=== PATIENT | female | born 1990 | race American Indian/Alaskan Native ===

== ENCOUNTER 2017-12-06 20:05 | Emergency (ER) | payer SELFPAY | END 2017-12-06 20:30 | disposition left against medical advice (07) | LOC: ED 20:05 | DX: R06.00 Dyspnea, unspecified (principal); Z53.21 Procedure and treatment not carried out due to patient leaving prior to being seen by health care provider ==

== ENCOUNTER 2018-10-15 16:56 | Emergency (ER) | payer SELFPAY ==
[2018-10-15 17:12] VITALS: BP 97/56
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
[2018-10-15] MEDS ORDERED: NORCO 5/325 PO ONE (17:32)
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
--- NOTE | 2018-10-15 19:22 | XRay Report ---
CLINICAL DATA: neck pain TECHNICAL DATA: AP, lateral, and odontoid views of the cervical spine were obtained. FINDINGS: The vertebral body heights, disc spaces, and alignment are well within normal limits. There is no glenna dence of fracture. No prevertebral soft tissue swelling is evident. IMPRESSION: Normal alignment without evidence of fracture. Signer Name: Atif Rebollar MD Signed: 10/15/2018 7:17 PM Workstation Name: [id number]
--- NOTE | 2018-10-15 19:22 | XRay Report ---
CHEST 2 VIEWS INDICATION: chest pain. COMPARISON: NONE FINDINGS: Support devices: None. Heart: Within normal limits. Lungs: No acute air space or interstitial disease. Pleura: No significant pleural effusion. No pneumothorax. Additional findings: None. IMPRESSION: 1. No acute findings. Signer Name: Atif Rebollar MD Signed: 10/15/2018 7:18 PM Workstation Name: [id number]
== END 2018-10-15 19:35 | disposition home or self-care (01) ==
LOC: ED 16:56
DX: S16.1XXA Strain of muscle, fascia and tendon at neck level, initial encounter (principal); R07.89 Other chest pain; M79.605 Pain in left leg; M79.604 Pain in right leg; Z79.899 Other long term (current) drug therapy; V89.2XXA Person injured in unspecified motor-vehicle accident, traffic, initial encounter; Y93.89 Activity, other specified; Y92.488 Other paved roadways as the place of occurrence of the external cause; Y99.8 Other external cause status
CPT/HCPCS: 71046; 72040; 93005; 93010; 99283

== ENCOUNTER 2019-01-05 12:08 | Emergency (ER) | payer OTHER ==
[2019-01-05 12:13] VITALS: BP 105/57
--- NOTE | 2019-01-05 12:29 | Emergency Department Report ---
Chief Complaint: Abdominal Pain Stated Complaint: POSS Time Seen by Provider: 01/05/19 12:19 - HPI History of Present Illness: This is a 28-year-old female nontoxic, well in appearance with no signs of distress presents to the ED for testing. Patient stated she has a positive test at home and just wants a test. Patient stated she is asymptotic. Denies any abdominal or pelvic pain. Denies any vaginal discharge, vaginal pain, or swelling. Patient denies any urinary symptoms. Patient denies any fever, chills, headache, nausea, vomiting, chest pain or shortness of breathe. denies any other symptoms or complaints. Denies any allergies or PMH. - Exam Vital Signs: Vital Signs 01/05/19 12:11 Temperature 98.3 F Pulse Rate 68 Respiratory 16 Rate Blood Pressure 105/57 O2 Sat by Pulse 96 Oximetry Physical Exam: no abdominal tenderness. no back pains. no urinary symptoms. no vaginal bleeding. MSE screening note: Focused history and physical exam performed. Due to findings the following was ordered: ED Medical Decision Making - Medical Decision Making This is a 28-year-old female that presents with nonmedical emergency complaint. Aliyah BRITO was present during this whole ED interview. Patient denies any abdominal pain. Stated she just wrote that to be seen but is here just for a test. I gave patient many different referrals to follow-up with OB. Patient was instructed to Follow-up with a OBGYN doctor in 3-5 days or if symptoms worsen and continue return to emergency room as soon as possible. At time of discharge, the patient does not seem toxic or ill in appearance. No acute signs of distress noted. Patient agrees to discharge treatment plan of care. No further questions noted by the patient. ED Disposition for MSE Clinical Impression: Possible Disposition: Z-07 MED SCREENING EXAM-LEFT Is pt being admited?: No Does the pt Need Aspirin: No Condition: Stable Instructions: (ED) Additional Instructions: Follow-up with a OBGYN doctor in 3-5 days or if symptoms worsen and continue return to emergency room as soon as possible. Referrals: PRIMARY CARE, [Referring] - 3-5 Days PURNIMA KNAPP MD [Staff Physician] - 3-5 Days [facility] [Provider Group] - 3-5 Days [facility] [Provider [facility]] - 3-5 Days
== END 2019-01-05 12:36 | disposition left against medical advice (07) ==
LOC: ED 12:08
DX: Z32.01 Encounter for pregnancy test, result positive (principal)
CPT/HCPCS: 99281

== ENCOUNTER 2019-03-25 21:36 | Emergency (ER) | payer SELFPAY ==
[2019-03-25 21:44] VITALS: BP 102/49
== END 2019-03-25 22:45 | disposition left against medical advice (07) ==
LOC: ED 21:36
DX: R10.2 Pelvic and perineal pain (principal); Z53.21 Procedure and treatment not carried out due to patient leaving prior to being seen by health care provider

== ENCOUNTER 2019-05-15 09:52 | Outpatient (CLI) | payer MEDICAID ==
--- NOTE | 2019-05-15 12:01 | Ultrasound Report ---
ULTRASOUND OBSTETRIC LIMITED INDICATION / CLINICAL INFORMATION: Placenta previa. COMPARISON: None available. FINDINGS: AMNIOTIC FLUID INDEX (cm) = 13.2 PRESENTATION: Cephalic. HEART RATE (beats per minute): 156 ADDITIONAL FINDINGS: The placenta is located anteriorly and appears unremarkable. IMPRESSION: Single live intrauterine as above. No acute sonographic abnormality of the pelvis. Signer Name: Yan Vargas MD Signed: 05/15/2019 11:57 AM Workstation Name: [id number]
== END 2019-05-15 12:00 | disposition home or self-care (01) ==
LOC: TRG 09:52
PROVIDERS: ATTEND Obstetrics & Gynecology
DX: O26.852 Spotting complicating pregnancy, second trimester (principal); Z3A.24 24 weeks gestation of pregnancy
CPT/HCPCS: 76815

== ENCOUNTER 2019-07-29 14:16 | Outpatient (CLI) | payer MEDICAID ==
[2019-08-01 12:02] VITALS: BP 106/61
== END 2019-07-29 16:20 | disposition home or self-care (01) ==
LOC: TRG 14:16 → APU 14:17 → TRG 16:20
PROVIDERS: ATTEND Obstetrics & Gynecology
DX: Z3A.35 35 weeks gestation of pregnancy (principal); R10.9 Unspecified abdominal pain; O26.893 Other specified pregnancy related conditions, third trimester
CPT/HCPCS: 59025